=== PATIENT | female | born 1935 | race Caucasian/White ===

== ENCOUNTER 2018-08-14 00:31 | Outpatient (CLI) | payer MEDICARE | END 2018-08-14 23:59 | disposition home or self-care (01) | LOC: DIABETIC 00:31 | PROVIDERS: ATTEND Specialist | DX: E11.65 Type 2 diabetes mellitus with hyperglycemia (principal); Z79.84 Long term (current) use of oral hypoglycemic drugs; Z79.899 Other long term (current) drug therapy | CPT/HCPCS: G0108 ==

== ENCOUNTER 2018-11-27 01:26 | Outpatient (CLI) | payer MEDICARE | END 2018-11-27 23:59 | disposition home or self-care (01) | LOC: DIABETIC 01:26 | PROVIDERS: ATTEND Specialist | DX: E11.65 Type 2 diabetes mellitus with hyperglycemia (principal); Z79.84 Long term (current) use of oral hypoglycemic drugs; Z79.82 Long term (current) use of aspirin; Z79.899 Other long term (current) drug therapy | CPT/HCPCS: G0108 ==

== ENCOUNTER 2019-02-26 02:17 | Outpatient (CLI) | payer MEDICARE | END 2019-02-26 23:59 | disposition home or self-care (01) | LOC: DIABETIC 02:17 | PROVIDERS: ATTEND Specialist | DX: E11.65 Type 2 diabetes mellitus with hyperglycemia (principal); Z79.84 Long term (current) use of oral hypoglycemic drugs; Z79.82 Long term (current) use of aspirin; Z79.899 Other long term (current) drug therapy | CPT/HCPCS: G0108 ==

== ENCOUNTER 2019-05-28 02:00 | Outpatient (CLI) | payer MEDICARE | END 2019-05-28 23:59 | disposition home or self-care (01) | LOC: DIABETIC 02:00 | PROVIDERS: ATTEND Specialist | DX: E11.65 Type 2 diabetes mellitus with hyperglycemia (principal); Z79.84 Long term (current) use of oral hypoglycemic drugs | CPT/HCPCS: G0108 ==

== ENCOUNTER 2019-06-23 07:07 | Day surgery (SDC) | payer MEDICARE ==
[~2019-06-23] VITALS: Ht 157.5 cm; Wt 62.1 kg
[2019-06-23] VITALS (14 sets, daily range): BP systolic 105–135; BP diastolic 40–65
--- NOTE | 2019-06-23 08:10 | NUR ---
BERE Tyler at bedside, ordered IV to be started, NS @ [facility].
[2019-06-23] MEDS ORDERED: fentaNYL/PF 50MCG/1 ML 2ML syringe ONE (08:53)
[2019-06-23] MEDS ORDERED: gelatin sponge, absorbable (Gelfoam 12-7MM) sponge TP ONE (08:53)
[2019-06-23] MEDS ORDERED: ASPI-611 PO (08:56)
[2019-06-23] MEDS ORDERED: GLIM4TAB7 PO (08:56)
[2019-06-23] MEDS ORDERED: METF-900 PO (08:56)
[2019-06-23] MEDS ORDERED: OMEP40CA13 PO (08:56)
[2019-06-23] MEDS ORDERED: PIOG15TA8 PO (08:56)
[2019-06-23] MEDS ORDERED: METO-539 PO (08:56)
[2019-06-23] MEDS ORDERED: HYDR12.55 PO (08:56)
[2019-06-23] MEDS ORDERED: HYDROcodone/acetaminophen 5mg/325mg tablet PO PRN ×2 (09:25→11:30)
--- NOTE | 2019-06-23 11:38 | NUR ---
clarified DC orders with Dr. Garay, pt to discharge at 1330. Per .
== END 2019-06-23 13:30 | disposition home or self-care (01) ==
LOC: MED 3N 07:07 → SSTAY O 07:07
PROVIDERS: ATTEND Radiology Vascular & Interventional Radiology
DX: C78.7 Secondary malignant neoplasm of liver and intrahepatic bile duct (principal); K76.89 Other specified diseases of liver; C80.1 Malignant (primary) neoplasm, unspecified; E11.9 Type 2 diabetes mellitus without complications; I10 Essential (primary) hypertension; E78.5 Hyperlipidemia, unspecified; K21.9 Gastro-esophageal reflux disease without esophagitis; Z90.49 Acquired absence of other specified parts of digestive tract; Z98.890 Other specified postprocedural states; Z79.899 Other long term (current) drug therapy; R10.30 Lower abdominal pain, unspecified
CPT/HCPCS: 47000; 76942; 82948; 88341; J3010; 88305; 88313; 88342